=== PATIENT | female | born 1995 | race American Indian/Alaskan Native ===

== ENCOUNTER 2018-07-31 18:07 | Emergency (ER) | payer SELFPAY ==
[2018-07-31 19:48] LABS: HCG Qualitative,Urine Negative (Negative)
--- NOTE | 2018-07-31 21:55 | XRay Report ---
FINAL REPORT PROCEDURE: XR FOOT 2V RT TECHNIQUE: Right foot radiographs, AP, lateral, and oblique views. HISTORY: foreign body COMPARISON: No prior studies are available for comparison. FINDINGS: Fracture (s) and/or Dislocation(s): None . Alignment: Normal. Joint space(s): Normal. Soft tissues: Normal. Bone mineralization: Normal. Foreign bodies: None. Calcaneal spurring: None. IMPRESSION: Normal Examination. No fracture. No radiopaque foreign body.
[2018-07-31] MEDS ORDERED: XYLOCAINE 2% INFILTRATI STA (22:44)
--- NOTE | 2018-07-31 23:01 | Emergency Department Report ---
- General Chief complaint: Skin/Abscess/Foreign Body Stated complaint: GLASS IN (R) FOOT Time Seen by Provider: 07/31/18 22:33 Source: patient Mode of arrival: Ambulatory Limitations: No Limitations - History of Present Illness complaint: foreign body (stepped on glass with her socks on about one week ago and has been trying vigorously to remove it with various at home treatments from soaks to manipulation to scraping the skin with razors. It became too tender for her to continue which is reasonable. Her presenting to the emergency department tondony) Tetanus Up to Date: yes Quality: dull, constant Consistency: constant Improves with: none Worsens with: palpation Context: none - Related Data Previous Rx's Medication Instructions Recorded Last Taken Type Chlorhexidine Gluconate 10 ml TP BID #120 liquid 07/31/18 Unknown Rx [Antiseptic Skin Cleanser] Allergies Allergy/AdvReac Type Severity Reaction Status Date / Time No Known Allergies Allergy Verified 07/31/18 18:17 Abscess Boil HPI - HPI Chief Complaint: Skin/Abscess/Foreign Body Stated Complaint: GLASS IN (R) FOOT Time Seen by Provider: 07/31/18 22:33 Home Medications: Previous Rx's Medication Instructions Recorded Last Taken Type Chlorhexidine Gluconate 10 ml TP BID #120 liquid 07/31/18 Unknown Rx [Antiseptic Skin Cleanser] Allergies/Adverse Reactions: Allergies Allergy/AdvReac Type Severity Reaction Status Date / Time No Known Allergies Allergy Verified 07/31/18 18:17 ED Review of Systems ROS: Stated complaint: GLASS IN (R) FOOT Other details as noted in HPI Constitutional: denies: chills, fever Eyes: denies: eye pain, eye discharge, vision change ENT: denies: ear pain, throat pain Respiratory: denies: cough, shortness of breath, wheezing Cardiovascular: denies: chest pain, palpitations Endocrine: no symptoms reported Gastrointestinal: denies: abdominal pain, nausea, diarrhea Genitourinary: denies: urgency, dysuria, discharge Musculoskeletal: denies: back pain, joint swelling, arthralgia Skin: denies: rash, lesions Neurological: denies: headache, weakness, paresthesias Psychiatric: denies: anxiety, depression Hematological/Lymphatic: denies: easy bleeding, easy bruising ED Past Medical Hx - Past Medical History Previous Medical History?: No - Surgical History Past Surgical History?: No - Social History Smoking Status: Current Some Day Smoker Substance Use Type: Alcohol - Medications Home Medications: Home Medications Medication Instructions Recorded Confirmed Last Taken Type Chlorhexidine Gluconate 10 ml TP BID #120 liquid 07/31/18 Unknown Rx [Antiseptic Skin Cleanser] ED Physical Exam - General Limitations: No Limitations General appearance: alert, in no apparent distress - Head Head exam: Present: atraumatic, normocephalic - Eye Eye exam: Present: normal appearance - Respiratory Respiratory exam: Present: normal lung sounds bilaterally. Absent: respiratory distress - Cardiovascular Cardiovascular Exam: Present: regular rate, normal rhythm. Absent: systolic murmur, diastolic murmur, rubs, gallop - Expanded Lower Extremity Exam Right Hip exam: Absent: swelling, deformity, crepidus Upper Leg exam: Present: normal inspection. Absent: tenderness, laceration, ecchymosis Ankle exam: Absent: tenderness, laceration, ecchymosis Foot/Toe exam: Present: tenderness. Absent: laceration, amputation, puncture wound, calcaneal tenderness, nail avulsion Neuro vascular tendon exam: Present: no vascular compromise ED Course Vital Signs 07/31/18 18:17 Temperature 98.5 F Pulse Rate 104 H Respiratory 16 Rate Blood Pressure 110/64 O2 Sat by Pulse 99 Oximetry - Laceration /Wound Repair Right Foot Wound Location: lower extremity (suspected foreign body into his foot T- incision was made an effort to retrieve no foreign body was visualized or palpated. Wound was closed) Wound's Depth, Shape: superficial Wound Explored: clean Betadine Prep?: Yes Anesthesia: 1% Lidocaine Wound Debrided: minimal Wound Repaired With: sutures Suture Size/Type: 3:0, nylon Number of Sutures: 2 Layer Closure?: No Sterile Dressing Applied?: Yes Critical care attestation.: If time is entered above; I have spent that time in minutes in the direct care of this critically ill patient, excluding procedure time. ED Disposition Clinical Impression: Foot pain, right Disposition: [id number] TO HOME OR SELFCARE Is pt being admited?: No Does the pt Need Aspirin: No Condition: Stable Instructions: Soft Tissue Foreign Body (ED), Puncture Wound (ED), Suture Care ( ED) Prescriptions: Chlorhexidine Gluconate [Antiseptic Skin Cleanser] 10 ml TP BID #120 liquid Referrals: PRIMARY CARE, [Primary Care Provider] - 3-5 Days [facility] [Provider Group] - [facility] (SUTURE REMOVAL IN 10 DAYS)
[2018-08-01 00:13] VITALS: BP 110/62
== END 2018-08-01 00:12 | disposition home or self-care (01) ==
LOC: ED 18:07
DX: M79.671 Pain in right foot (principal); F17.200 Nicotine dependence, unspecified, uncomplicated
CPT/HCPCS: 81025